=== PATIENT | female | born 1955 ===

== ENCOUNTER 2018-11-23 15:15 | Outpatient (CLI) | payer OTHER ==
--- NOTE | 2018-11-23 16:58 | BD ---
EXAM: DEXA bone density examination HISTORY: 63-year-old postmenopausal female for screening COMPARISON: None FINDINGS: L1--bone mineral density 0.726 g/sq cm; T score -2.4 L2--bone mineral density 0.794 g/sq cm; T score -2.1 L3--bone mineral density 0.824 g/sq cm; T score -2.4 L4--bone mineral density 0.865 g/sq cm; T score -1.8 Total L1-L4--bone mineral density 0.807 g/sq cm; T score -2.2 Left femoral neck--bone mineral density0.580; T score -2.4 Total proximal left femur--bone mineral density 0.767; T score -1.4 IMPRESSION: Osteopenia. This patient has a 10 year WHO fracture risk of a major osteoporotic fracture of 20% and of a hip fracture of 2.2%.
== END 2018-11-23 15:16 | disposition home or self-care (01) ==
LOC: BICMAMMO 15:15 → MERGE 11-24 13:30
PROVIDERS: ATTEND Obstetrics & Gynecology
DX: Z13.820 Encounter for screening for osteoporosis (principal); M85.89 Other specified disorders of bone density and structure, multiple sites
CPT/HCPCS: 77080